=== PATIENT | female | born 1965 | race Caucasian/White ===

== ENCOUNTER → 2023-10-05 | Outpatient (CLI) | payer MEDICAID | END | disposition home or self-care (01) | LOC: MRI 14:28 | PROVIDERS: ATTEND Anesthesiology Pain Medicine | DX: J34.89 Other specified disorders of nose and nasal sinuses (principal); S46.912A Strain of unspecified muscle, fascia and tendon at shoulder and upper arm level, left arm, initial encounter; M47.812 Spondylosis without myelopathy or radiculopathy, cervical region; M54.6 Pain in thoracic spine; M40.204 Unspecified kyphosis, thoracic region; M62.830 Muscle spasm of back; M47.814 Spondylosis without myelopathy or radiculopathy, thoracic region; G43.009 Migraine without aura, not intractable, without status migrainosus; Z72.0 Tobacco use; Z87.828 Personal history of other (healed) physical injury and trauma; X58.XXXA Exposure to other specified factors, initial encounter; Y93.89 Activity, other specified; Y92.89 Other specified places as the place of occurrence of the external cause; Y99.8 Other external cause status | CPT/HCPCS: 70551 ==